=== PATIENT | female | born 1980 | race Caucasian/White ===

== ENCOUNTER 2018-03-26 10:32 | Inpatient (IN) ==
[2018-03-26] MEDS ORDERED: Morphine Sulfate Inj 2 MG/ML Vial IV.PUSH PRN (19:39)
--- NOTE | 2018-03-26 20:31 | P.HPIM ---
History of Present Illness Service: [facility] Primary Care Physician: Devonte Chen Chief Complaint: Abdominal pain History of Present Illness: 37-year-old female with a history of kidney stones and endometriosis presenting to the ED with complaints of right lower quadrant abdominal pain. Patient states the pain began today and is in her right groin constant, 10/10, no radiation but with associated nausea and fatigue, worse with movement, slightly better with pain medication. Denies any chest pain, sob , fever or chills. Patient states she has had kidney stones in the past but she was able to pass them on her own with no surgical intervention. Inpatient Certification Inpatient Certification: I certify that the inpatient services were ordered in accordance with Medicare regulations governing the order. This includes certification that hospital inpatient services are reasonable and necessary and in the case of services not specified as inpatient-only under 42 CFR 419.22(n), that they are appropriately provided as inpatient services in accordance to with the 2-midnight benchmark under 43 CFR 412.3(e) Estimated Total Length of Stay (Days): 2 Plans for Post Hospital Care: Home Review of Systems ROS: all other systems reviewed are negative PMFSH History History Provided By: Patient Medical History Medical History Kidney stone (Acute) Endometriosis (Acute) Surgical History Surgical History Hx of cholecystectomy (Acute) Family History Family History Other No family history of disorders Social History Social History Substance History: No History of Abuse Second Hand Smoke Exposure: No Smoking Status: Never smoker How Often Do You Have a Drink Containing Alcohol: Never Medications and Allergies Allergies Allergy/AdvReac Type Severity Reaction Status Date / Time No Known Allergies Allergy Verified 03/26/18 10:43 Home Medications Medication Instructions Recorded Confirmed Type No Known Home Medications 03/26/18 03/26/18 History Active Medications: Active Medications Sodium Chloride (Ns Inj) 1,000 mls @ 100 mls/hr IV.CONT .Q10H STACIE Morphine Sulfate (Morphine Inj) 2 mg IV.PUSH Q3H PRN PRN Reason: PAIN SCALE 1 TO 10 Ondansetron HCl (Zofran Inj) 4 mg IV.PUSH Q6H PRN PRN Reason: NAUSEA OR VOMITING Physical Exam Narrative: GENERAL: This is a well-nourished, well-developed patient, in no apparent distress. SKIN: Warm, dry, intact, no ecchymosis or open lesions EYES: Pupils equal round and reactive, no scleral edema or drainage CARDIOVASCULAR: Regular rate and rhythm without murmurs, gallops, or rubs. RESPIRATORY: Clear to auscultation. Breath sounds equal bilaterally. No wheezes , rales, or rhonchi. GASTROINTESTINAL: Abdomen soft, RLQ-tenderness, nondistended. Normal active bowel sounds MUSCULOSKELETAL: Extremities without clubbing, cyanosis, or edema. NEURO: Alert & Oriented x4 to person, place, time, situation. Moves all ext x4 Assessment and Plan Plan Ureterolithiasis Abdominal CT reviewed and showed a 5 mm distal right ureteral calculus causing [id number] hydronephrosis. and a 4 mm calculus lower pole the right kidney -Consult urology -IV morphine for pain management -IVF, NPO -Zofran as needed DVT prophylaxis: SCDs
[2018-03-26] MEDS ORDERED: Ketorolac Inj 30 MG/ML (IVP) Vial IV.PUSH ONE (20:45)
[2018-03-26] MEDS: Sod Chloride 0.9% Inj 1,000 ML IV.CONT SCH (21:02)
[2018-03-27] MEDS: Sod Chloride 0.9% Inj 1,000 ML IV.CONT SCH ×3 (06:00→19:20)
[2018-03-27 08:27] LABS: Baso % (Auto) 0.2 % (0.0-2.0); Eos % (Auto) 0.1 % (0.0-4.0); Hematocrit 31.9 % (35.0-46.0); Hemoglobin 10.8 gm/dL (11.6-15.3); Lymph # (Auto) 1.1 th/mm3 (1.0-4.8); Lymph % (Auto) 9.8 % (9.0-44.0); Mean Corpuscular HGB Conc 33.8 % (32.0-36.0); Mean Corpuscular Hemoglobin 31.2 pg (27.0-34.0); Mean Corpuscular Volume 92.5 fL (80.0-100.0); Mean Platelet Volume 7.9 fL (7.0-11.0); Mono # (Auto) 0.7 th/mm3 (0.0-0.9); Mono % (Auto) 6.9 % (0.0-8.0); Neut # (Auto) 8.9 th/mm3 (1.8-7.7); Platelet Count 168 th/mm3 (150-450); Red Blood Count 3.45 mil/mm3 (4.00-5.30); Red Cell Distribution Width 13.9 % (11.6-17.2); White Blood Count 10.8 th/mm3 (4.0-11.0)
[2018-03-27 08:55] LABS: Calcium 7.9 mg/dL (8.5-10.1); Carbon Dioxide 26.4 meq/L (21.0-32.0)
--- NOTE | 2018-03-27 09:01 | P.PNIM ---
Subjective Interval history: f/u; nephrolithiasis in no acute distress.still with some right flank/lower abdominal pain. no fever. d/w the RN at the bedside. Physical Exam Vital signs: Vital Signs 03/26/18 20:00 03/27/18 00:00 03/27/18 08:00 Temperature 97.7 F 98.2 F Pulse Rate 59 L 67 65 Respiratory Rate 16 16 16 Blood Pressure 97/59 L 108/59 L 105/58 L Pulse Oximetry 96 96 99 Intake & Output 03/26/18 03/27/18 03/27/18 18:59 06:59 18:59 Intake Total 1000 / 1000 Output Total 440 / 440 Balance -440 / -440 1000 / 1000 Weight 76 kg Intake: IV 1000 / 1000 NS Inj 1,000 ML @ 100 mls/hr IV 1000 / 1000 .CONT .Q10H STACIE Rx#:[id number] Output: Urine 440 / 440 Other: # Voids 2 Weight On Admission 76 kg - Constitutional no acute distress - Routine Respiratory Exam Present: CTA bilaterally - Routine Cardiovascular Exam Present: RRR - Routine Abdominal Exam Present: soft, tenderness (some tenderness in right flank.) - Routine Extremities Exam Comments: no pedal edema. - Routine Neurological Exam Present: alert, oriented X3 Results - Labs CBC & Chem 7: 03/27/18 08:18 03/27/18 08:18 Laboratory Results - last 24 hr 03/27/18 03/27/18 08:18 08:18 WBC 10.8 D RBC 3.45 L Hgb 10.8 L Hct 31.9 L MCV 92.5 MCH 31.2 MCHC 33.8 RDW 13.9 Plt Count 168 D MPV 7.9 Neut % (Auto) 83.0 H Lymph % (Auto) 9.8 Bremer % (Auto) 6.9 Eos % (Auto) 0.1 Baso % (Auto) 0.2 Neut # (Auto) 8.9 H Lymph # (Auto) 1.1 Bremer # (Auto) 0.7 Eos # (Auto) 0.0 Baso # (Auto) 0.0 WBC Differential . Differential Comment Auto diff final Sodium 142 Potassium 4.0 Chloride 110 H Carbon Dioxide 26.4 Anion Gap 6 BUN 22 H Creatinine 1.15 H Estimated GFR 53 L Random Glucose 86 Calcium 7.9 L D Assessment and Plan - Plan Ureterolithiasis Abdominal CT reviewed and showed a 5 mm distal right ureteral calculus causing zbkb-dz-[id number] hydronephrosis. and a 4 mm calculus lower pole the right kidney -Consulted urology -IV morphine for pain management -IVF, NPO -Zofran as needed Discharge Planning: home- pending urology evaluation.
--- NOTE | 2018-03-27 12:58 | P.CONURO ---
History of Present Illness Service: Consult date: 03/27/18 Requesting Physician: Vonda Ann Reason for Consult: Obstructing right ureteral calculus Primary Care Provider: Devonte Chen Chief Complaint: Abdominal pain History of Present Illness: 37-year-old female with history nephrolithiasis in the past who is now admitted for acute onset of right flank pain. Patient was initially worked up in the emergency room at [facility] whereby a CT scan of the abdomen and pelvis was performed and demonstrated right hydroureteronephrosis secondary to a 5 mm right distal ureteral calculus. Also noted was a 4 mm right lower pole renal calculus. The ER physician was having trouble getting the pain controlled and thus a decision was made to transfer admit the patient to [facility] for ongoing pain management. At the time of consultation, the patient reports that the pain was being well controlled with intravenous medication. She denied passing the stone as of yet. She continued to complain of intermittent pressure involving the right lower quadrant. She denied dysuria or gross hematuria. Patient reports that she spontaneously passed approximately 2-3 mm calculus approximately 6 years ago. Review of Systems All other systems reviewed negative except as stated in HPI PMFSH - History History Provided By: Patient - Medical History Medical History: Medical History (Last Updated 03/26/18 @ 20:31 by SP Michelle) Kidney stone Endometriosis - Surgical History Surgical History: Surgical History (Last Updated 03/26/18 @ 10:59 by Sirena Hernandez RN) Hx of cholecystectomy - Family History Family History: Family History (Last Reviewed 03/26/18 @ 22:14 by SP Michelle) Other No family history of disorders - Tobacco History Second Hand Smoke Exposure: No Smoking Status: Never smoker - Alcohol History How Often Do You Have a Drink Containing Alcohol: Never - Substance Use History Substance History: No History of Abuse Medications and Allergies Active Medications: Active Medications Sodium Chloride (Ns Inj) 1,000 mls @ 100 mls/hr IV.CONT .Q10H STACIE Last Admin: 03/27/18 08:48 Dose: 100 mls/hr Morphine Sulfate (Morphine Inj) 2 mg IV.PUSH Q3H PRN PRN Reason: PAIN SCALE 1 TO 10 Last Admin: 03/27/18 05:56 Dose: 2 mg Ondansetron HCl (Zofran Inj) 4 mg IV.PUSH Q6H PRN PRN Reason: NAUSEA OR VOMITING Last Admin: 03/27/18 05:56 Dose: 4 mg Allergies Allergy/AdvReac Type Severity Reaction Status Date / Time No Known Allergies Allergy Verified 03/26/18 10:43 Home Medications Medication Instructions Recorded Confirmed Type No Known Home Medications 03/26/18 03/26/18 History Physical Exam Vital Signs - 24 hr 03/26/18 20:00 03/27/18 00:00 03/27/18 08:00 Temperature 97.7 F 98.2 F Pulse Rate 59 L 67 65 Respiratory Rate 16 16 16 Blood Pressure 97/59 L 108/59 L 105/58 L Pulse Oximetry 96 96 99 Physical Exam: GENERAL: This is a well-nourished, well-developed patient, in no apparent distress. SKIN: No rashes, ecchymoses or lesions. Cool and dry. HEAD: Atraumatic. Normocephalic. No temporal or scalp tenderness. EYES: Pupils equal round and reactive. Extraocular motions intact. No scleral icterus. No injection or drainage. ENT: Nose without bleeding, purulent drainage or septal hematoma. Throat without erythema, tonsillar hypertrophy or exudate. Uvula midline. Airway patent. NECK: Trachea midline. No JVD or lymphadenopathy. Supple, nontender, no meningeal signs. CARDIOVASCULAR: Regular rate and rhythm without murmurs, gallops, or rubs. RESPIRATORY: Clear to auscultation. Breath sounds equal bilaterally. No wheezes , rales, or rhonchi. GASTROINTESTINAL: Abdomen soft, non-tender, nondistended. No hepato-splenomegaly , or palpable masses. No guarding. GENITOURINARY: No CVA tenderness, bladder not distended MUSCULOSKELETAL: Extremities without clubbing, cyanosis, or edema. No joint tenderness, effusion, or edema noted. No calf tenderness. Negative Homans sign bilaterally. NEUROLOGICAL: Awake and alert. Cranial nerves II through XII intact. Motor and sensory grossly within normal limits. Five out of 5 muscle strength in all muscle groups. Normal speech. Laboratory Results - last 24 hr 03/27/18 03/27/18 08:18 08:18 WBC 10.8 D RBC 3.45 L Hgb 10.8 L Hct 31.9 L MCV 92.5 MCH 31.2 MCHC 33.8 RDW 13.9 Plt Count 168 D MPV 7.9 Neut % (Auto) 83.0 H Lymph % (Auto) 9.8 Dolores % (Auto) 6.9 Eos % (Auto) 0.1 Baso % (Auto) 0.2 Neut # (Auto) 8.9 H Lymph # (Auto) 1.1 Dolores # (Auto) 0.7 Eos # (Auto) 0.0 Baso # (Auto) 0.0 WBC Differential . Differential Comment Auto diff final Sodium 142 Potassium 4.0 Chloride 110 H Carbon Dioxide 26.4 Anion Gap 6 BUN 22 H Creatinine 1.15 H Estimated GFR 53 L Random Glucose 86 Calcium 7.9 L D Result Diagrams: 03/27/18 08:18 03/27/18 08:18 Assessment and Plan - Assessment (1) Ureteral calculus, right Code(s): N20.1 - Calculus of ureter Status: Acute (2) Renal calculus, right Code(s): N20.0 - Calculus of kidney Status: Acute (3) Hydronephrosis of right kidney Code(s): N13.30 - Unspecified hydronephrosis Status: Acute - Plan Urologic impression: 1. 5 mm right distal ureteral calculus causing right hydroureteronephrosis 2. 4 mm nonobstructing right lower pole renal calculus Recommendations: 1. Continue with analgesic support and attempt to switch over to oral meds if possible 2. Continue to strain all urine 3. We will add Flomax 0.4 mg by mouth daily 4. May DC home with instructions to strain all urine until stone passed if pain managed well with oral medication 5. If patient able to be discharged home, then she should follow-up with me in the office next week.
--- NOTE | 2018-03-27 14:27 | P.PNADD ---
Addendum to Inpatient Note Reason for Addendum: Additional Documentation (urology evaluation appreciated and the patient was seen again; pain is lightly better. will likely dc home eaither later this evening or tomorrow morning if pain continues to improve- E- Lancece was consulted .)
[2018-03-28] MEDS: Sod Chloride 0.9% Inj 1,000 ML IV.CONT SCH ×2 (03:52→04:19)
[2018-03-28 08:13] VITALS: RESP 18
--- NOTE | 2018-03-28 09:39 | P.PNIM ---
Subjective Interval history: f/u; nephrolithiasis in no acute distress. still has some pain but looks more comfortable. no fever. Physical Exam Vital signs: Vital Signs 03/27/18 12:00 03/27/18 16:00 03/27/18 20:00 Temperature 98.4 F 98.7 F 97.9 F Pulse Rate 74 71 67 Respiratory Rate 16 17 16 Blood Pressure 106/56 L 107/60 103/65 Pulse Oximetry 100 100 96 03/28/18 00:00 03/28/18 08:00 Temperature 98.0 F 97.8 F Pulse Rate 67 73 Respiratory Rate 16 18 Blood Pressure 100/62 104/58 L Pulse Oximetry 98 97 Intake & Output 03/27/18 03/28/18 03/28/18 18:59 06:59 18:59 Intake Total 1999 / 1999 1280 / 1280 Output Total 175 / 175 800 / 800 Balance 1825 / 1825 480 / 480 Weight 76 kg Intake: IV 1999 / 1999 1000 / 1000 NS Inj 1,000 ML @ 100 mls/hr IV 1999 / 1999 1000 / 1000 .CONT .Q10H STACIE Rx#:[id number] Oral 280 / 280 Output: Urine 175 / 175 800 / 800 Other: Date of Last Bowel Movement 03/25/18 03/25/18 - Constitutional no acute distress - Routine Respiratory Exam Present: CTA bilaterally - Routine Cardiovascular Exam Present: RRR - Routine Abdominal Exam Present: soft - Routine Extremities Exam Comments: no pedal edema. - Routine Neurological Exam Present: alert, oriented X3 Results - Labs CBC & Chem 7: 03/27/18 08:18 03/27/18 08:18 Assessment and Plan - Plan Ureterolithiasis Abdominal CT reviewed and showed a 5 mm distal right ureteral calculus causing qasc-yp-qneyawya hydronephrosis. and a 4 mm calculus lower pole the right kidney -Consulted urology; no intervention at this time. -continue with pain control. -continue Flomax. -IVF -Zofran as needed Discharge Planning: home- possible later today if pain is controlled. f/u; pcp and urology upon discharge. E-[facility]ce was consulted.
--- NOTE | 2018-03-28 11:05 | P.PNURO ---
Subjective Patient symptoms today: Reports pain managed with oral meds Nausea controlled with medication as well Continues to have right lower quadrant pressure Has not passed a stone as of yet Objective Vital Signs: Vital Signs 03/27/18 12:00 03/27/18 16:00 03/27/18 20:00 Temperature 98.4 F 98.7 F 97.9 F Pulse Rate 74 71 67 Respiratory Rate 16 17 16 Blood Pressure 106/56 L 107/60 103/65 Pulse Oximetry 100 100 96 03/28/18 00:00 03/28/18 08:00 Temperature 98.0 F 97.8 F Pulse Rate 67 73 Respiratory Rate 16 18 Blood Pressure 100/62 104/58 L Pulse Oximetry 98 97 Intake & Output 03/27/18 03/28/18 03/28/18 18:59 06:59 18:59 Intake Total 1999 1280 / 1280 Output Total 175 / 175 800 / 800 Balance 1825 / 1825 480 / 480 Weight 76 kg Intake: IV 1999 1000 / 1000 NS Inj 1,000 ML @ 100 mls/hr IV 1999 1000 / 1000 .CONT .Q10H STACIE Rx#:[id number] Oral 280 / 280 Output: Urine 175 / 175 800 / 800 Other: Date of Last Bowel Movement 03/25/18 03/25/18 Result Diagrams: 03/27/18 08:18 03/27/18 08:18 Other Results: No CVA tenderness Abdomen soft, nondistended, nontender Bladder not distended Medications and IVs: Active Medications Generic Name Dose Route Start Last Admin Trade Name Freq PRN Reason Stop Dose Admin Sodium Chloride 1,000 mls @ 100 mls/hr 03/26/18 20:00 03/28/18 04:19 Ns Inj IV.CONT 100 mls/hr .Q10H STACIE Administration Morphine Sulfate 2 mg 03/26/18 19:39 03/27/18 05:56 Morphine Inj IV.PUSH 2 mg Q3H PRN Administration PAIN SCALE 1 TO 10 Ondansetron HCl 4 mg 03/26/18 19:39 03/28/18 04:18 Zofran Inj IV.PUSH 4 mg Q6H PRN Administration NAUSEA OR VOMITING Ondansetron HCl 4 mg 03/27/18 13:18 Zofran Odt PO Q6H PRN NAUSEA OR VOMITING Oxycodone/Acetaminophen 1 tab 03/27/18 12:58 03/28/18 04:16 Percocet 5/325 Mg PO 1 tab Q6H PRN Administration PAIN SCALE 3 TO 5 Oxycodone/Acetaminophen 2 tab 03/27/18 13:00 Percocet 5/325 Mg PO Q6H PRN PAIN SCALE 6 TO 10 Tamsulosin HCl 0.4 mg 03/27/18 13:45 03/28/18 08:25 Flomax PO 0.4 mg DAILY STACIE Administration Assessment and Plan - Assessment (1) Ureteral calculus, right Code(s): N20.1 - Calculus of ureter Status: Acute (2) Renal calculus, right Code(s): N20.0 - Calculus of kidney Status: Acute (3) Hydronephrosis of right kidney Code(s): N13.30 - Unspecified hydronephrosis Status: Acute - Plan Urologic impression: 1. 5 mm right distal ureteral calculus causing right hydroureteronephrosis 2. 4 mm nonobstructing right lower pole renal calculus Recommendations: 1. Urologically cleared for discharge home with oral analgesics and antiemetics 2. Continue to strain all urine 3. Continue with Flomax 0.4 mg by mouth daily 4. Office follow-up with wa next Monday [phone]
[2018-03-28 12:03] VITALS: BP 119/58; PULSE 52; TEMP 97.5; O2SAT 100
--- NOTE | 2018-03-28 13:35 | P.DS ---
Date of admission: 03/26/18 19:39 Primary care physician: Devonte Chen Brief History from admission: 37-year-old female with a history of kidney stones and endometriosis presenting to the ED with complaints of right lower quadrant abdominal pain. Patient states the pain began today and is in her right groin constant, 10/10, no radiation but with associated nausea and fatigue, worse with movement, slightly better with pain medication. Denies any chest pain, sob, fever or chills. Patient states she has had kidney stones in the past but she was able to pass them on her own with no surgical intervention. DS: Medications - Discharge Medications Prescriptions: ondansetron HCl [Zofran] 4 mg PO TID PRN #10 tab PRN Reason: nausea oxycodone-acetaminophen 1 tab PO Q6H PRN #10 tab PRN Reason: pain tamsulosin 0.4 mg PO DAILY 7 Days #7 cap DS: Summary Hospital Course: Ureterolithiasis Abdominal CT reviewed and showed a 5 mm distal right ureteral calculus causing putv-fc-dwuhgkhn hydronephrosis. and a 4 mm calculus lower pole the right kidney -Consulted urology; no intervention at this time. -continue with pain control. -continue Flomax. -Zofran as needed - Time Spent with Patient Total time spent providing and/or coordinating discharge services: Less than 30 minutes - Quality: VTE Deep Vein Thrombosis/Pulmonary Embolism Present on Admission: No Exam Vital signs: Vital Signs 03/27/18 16:00 03/27/18 20:00 03/28/18 00:00 Temperature 98.7 F 97.9 F 98.0 F Pulse Rate 71 67 67 Respiratory Rate 17 16 16 Blood Pressure 107/60 103/65 100/62 Pulse Oximetry 100 96 98 03/28/18 08:00 03/28/18 12:00 Temperature 97.8 F 97.5 F L Pulse Rate 73 52 L Respiratory Rate 18 18 Blood Pressure 104/58 L 119/58 L Pulse Oximetry 97 100 Intake & Output 03/27/18 03/28/18 03/28/18 18:59 06:59 18:59 Intake Total 1999 1280 / 1280 Output Total 175 / 175 800 / 800 Balance 1825 / 1825 480 / 480 Weight 76 kg Intake: IV 1999 1000 / 1000 NS Inj 1,000 ML @ 100 mls/hr IV 1999 1000 / 1000 .CONT .Q10H STACIE Rx#:[id number] Oral 280 / 280 Output: Urine 175 / 175 800 / 800 Other: Date of Last Bowel Movement 03/25/18 03/25/18 03/25/18 - Constitutional no acute distress - Routine Respiratory Exam Present: CTA bilaterally - Routine Cardiovascular Exam Present: RRR - Routine Abdominal Exam Present: soft - Routine Extremities Exam Comments: no pedal edema. - Routine Neurological Exam Present: alert, oriented X3 Results Procedures completed during hospitalization: none. Discharge Plan - Discharge Disposition Patient Disposition: Discharge Home - Discharge Condition Condition: Fair - Physicians Team Primary Care Provider: Devonte Chen Attending Provider: Alan Gregg Other Providers: Sekou Au MD - Rxs /Orders / Referrals /Forms Prescriptions: New ondansetron HCl [Zofran] 4 mg Tablet 4 mg PO TID PRN (Reason: nausea) Qty: 10 RF: 0 oxycodone-acetaminophen 5-325 mg Tablet 1 tab PO Q6H PRN (Reason: pain) Qty: 10 RF: 0 tamsulosin 0.4 mg Capsule 0.4 mg PO DAILY 7 Days Qty: 7 RF: 0 No Action No Known Home Medications Referrals: Devonte Chen MD [Primary Care Provider] - See Instructions
== END 2018-03-28 15:06 | disposition home or self-care (01) ==
LOC: NEDDLT 10:32 → N07 10:32
PROVIDERS: ADMIT Internal Medicine; ATTEND Internal Medicine